=== PATIENT | female | born 1950 | race Caucasian/White ===

== ENCOUNTER 2020-03-31 12:36 | Emergency (ER) | payer OTHER, SELFPAY ==
[2020-03-31 12:56] VITALS: BP 159/72; PULSE 92; RESP 16; TEMP 36.3; O2SAT 99
--- NOTE | 2020-03-31 13:32 | ED.ABDPAIN ---
HPI - Abdominal Pain General Chief Complaint: Abdominal Pain Stated Complaint: abd pain Time Seen by Provider: 03/31/20 13:07 Source: patient and RN notes reviewed Mode of arrival: ambulatory Limitations: no limitations History of Present Illness HPI narrative: 69 year old female who presents to [facility] care with stated complaints of right upper abdominal discomfort which occurred at end of last week which was sharp and lasted only for a short interval. Yesterday patient states that she had pain in her upper right abdomen which radiated into the lower abdomen intermittently.States just soreness to area now, last bowel movement was today, no fevers, no nausea or vomiting voiced. Patient states no pain with urination or urgency.Patient denies any problems with acid reflux, gall bladder disease MD elicited complaint: abdominal pain Onset (ago): day(s) (last week for one day the started again yesterday and today) Pain Consistency: intermittent Location: RUQ and RLQ (radiated to right lower abdomen) Severity: mild Pain scale (0-10): 4 Quality: other (soreness) Radiation: RUQ and RLQ Exacerbating factors: nothing Relieving factors: nothing Related Data Hx Last Menstrual Period: hysterectomy Home Medications Medication Instructions Recorded Confirmed atorvastatin 10 mg tablet 10 mg PO DAILY 08/21/19 03/31/20 calcium citrate 200 mg (950 mg) 200 mg PO DAILY 08/21/19 03/31/20 tablet cyclosporine 0.05 % eye drops in a 1 drop EACH EYE Q12H 08/21/19 03/31/20 dropperette clvtegld-kplljxg-tmhg-lutein mcg PO 08/21/19 01/30/20 omega-3 fatty acids 1,000 mg 1,000 mg PO DAILY 08/21/19 03/31/20 capsule Allergies Allergy/AdvReac Type Severity Reaction Status Date / Time No Known Allergies Allergy Mild Verified 03/31/20 12:59 Review of Systems Review of Systems: Narrative: CONSTITUTIONAL: Denies fever, chills, or sweats. EYES: Denies visual changes, redness, or discharge. ENT: Denies rhinorrhea, congestion, sore throat, or otalgia. CARDIOVASCULAR: Denies chest pain, palpitations, or edema. RESPIRATORY: Denies cough or dyspnea. GASTROINTESTINAL: Denies abdominal pain, nausea, vomiting, or diarrhea. GENITOURINARY: Denies dysuria or hematuria states right upper abdomen to right lower abdomen pain. SKIN: Denies rash or itching. MUSCULOSKELETAL: Denies back pain, joint pain, or myalgia. NEUROLOGIC: Denies headache, numbness, or weakness. PSYCHIATRIC: Denies anxiety or depression. All systems reviewed & are unremarkable except as noted in HPI and below PMFSH Past Medical History Medical History (Updated 03/31/20 @ 17:53 by Robyn Ordoñez NP) Hyperlipidemia UTI (urinary tract infection) Surgical History Surgical History H/O cataract extraction H/O detached retina repair H/O: hysterectomy History of Mohs surgery for squamous cell carcinoma in situ of skin Family History Family History Father Family history of cardiovascular disease Hypertension Family history of elevated blood lipids Acute myocardial infarction Social History Social History (Updated 03/31/20 @ 17:53 by Robyn Ordoñez NP) Smoking status: Never smoker Alcohol intake: current Living arrangements: with family Gender identity (if verbalized by the patient): Female Comments At time of signature, agree with nursing past medical, surgical, social and family history. There is no relevant family history pertinent to the presenting complaint Exam Narrative: Exam Narrative: GENERAL: Well-appearing, well-nourished, and in no acute distress. HEAD: Normocephalic, atraumatic. EYES: PERRLA and EOMI. ENT: Nares clear, no rhinorrhea or epistaxis. Mucous membranes moist. NECK: Supple. CHEST: Clear to auscultation. No respiratory distress. HEART: Regular rate and rhythm. No murmur heard. Normal peripheral pulses. ABDOMEN: Soft, nontender to pa
== END 2020-03-31 13:49 | disposition home or self-care (01) ==
PROVIDERS: Emergency Provider Registered Nurse; PCP Family Medicine
DX: N39.0 Urinary tract infection, site not specified (principal)
CPT/HCPCS: 81003; 87086; 99213; G0463

== ENCOUNTER 2020-10-27 08:31 | Outpatient (CLI) | payer OTHER, SELFPAY | END 2020-10-27 08:32 | disposition home or self-care (01) | LOC: ANHCOVIDVC 08:31 | PROVIDERS: PCP Family Medicine | DX: Z23 Encounter for immunization (principal) | CPT/HCPCS: 0001A; 91300 ==

== ENCOUNTER 2020-11-17 08:00 | Outpatient (CLI) | payer OTHER, SELFPAY | END 2020-11-17 08:01 | disposition home or self-care (01) | LOC: ANHCOVIDVC 08:01 | PROVIDERS: PCP Family Medicine | DX: Z23 Encounter for immunization (principal) | CPT/HCPCS: 0002A; 91300 ==

== ENCOUNTER → 2021-10-13 09:35 | Outpatient (CLI) | payer OTHER, SELFPAY ==
--- NOTE | ~2021-10-13 | US_ITS ---
EXAMINATION: US thyroid EXAM DATE: 10/13/2021 09:57 INDICATION: Thyroid nodule. Partial thyroidectomy. TECHNIQUE: Multiple grayscale and Doppler images of the thyroid were obtained (by a technologist who performed the scan) and subsequently reviewed. Individual nodules and recommendations may be reporte d in accordance with TI-RADS system as designated by the 2017 ACR White Paper TI-RADS committee. The re is no prior study for comparison. FINDINGS: The right there are lobe measures 3.7 x 1.2 x 1.1 cm, the left measuring 4.7 x 2.4 x 2.9 cm. Diffusel y heterogeneous thyroid echogenicity. There is a left thyroid lobe category TR 4 nodule measuring 3.9 x 2.3 x 2.4 cm. This is large enough to recommend biopsy if not previously performed. IMPRESSION: Left thyroid lobe nodule; consider ultrasound-guided FNA if not previously performed. Reviewed, dictated and finalized at location G. ECT HIRE IMPRESSION: Left thyroid lobe nodule; consider ultrasound-guided FNA if not pre viously performed.
== END ==
PROVIDERS: PCP Family Medicine; Visit Provider Internal Medicine Endocrinology, Diabetes & Metabolism
DX: E04.1 Nontoxic single thyroid nodule (principal)
CPT/HCPCS: 76536

== ENCOUNTER 2021-11-17 09:05 | Outpatient (CLI) | payer OTHER, SELFPAY ==
--- NOTE | ~2021-11-17 | US_ITS ---
EXAMINATION: US FNA w image guidance DATE: 11/17/2021 10:20 INDICATION: Left thyroid mass TECHNIQUE: A time-out was performed to verify the patient's name, date of , and procedure to be performed . The procedure and its benefits and risks were discussed with the patient. Risks specifically discus sed included bleeding and infection. The patient understood the risks and agreed to proceed. The neck was prepped and draped in the usual sterile manner. 3 mL 1% lidocaine was used for local anesthesia . 6 passes were made with a 25G needle into the lesion. Appropriate needle location was documented with continuous sonographic guidance. The specimens were passed to the industrial technologist in the room. A sterile bandage was applied. There were no immediate complications. FINDINGS: Grayscale ultrasound images demonstrate biopsy needles advanced into a 4.0 cm heterogeneous predomina ntly solid left thyroid mass. IMPRESSION: 1. Successful ultrasound-guided fine needle aspiration of a 4.0 cm left thyroid mass. Reviewed, dictated and finalized at location A. IMPRESSION: 1. Successful ultrasound-guided fine needle aspiration of a 4.0 cm left thyroi d mass.
== END 2021-11-17 09:06 | disposition home or self-care (01) ==
LOC: ANHIMG 09:08
PROVIDERS: PCP Family Medicine; Visit Provider Internal Medicine Endocrinology, Diabetes & Metabolism
DX: E04.1 Nontoxic single thyroid nodule (principal)
CPT/HCPCS: 10005; 88173; 88305

== ENCOUNTER 2021-12-28 06:50 | Outpatient (CLI) | payer OTHER, SELFPAY ==
--- NOTE | ~2021-12-28 | NM_ITS ---
EXAMINATION: NM thyroid scan w uptake DATE: 12/29/2021 14:23 INDICATION: Thyroid nodule. COMPARISON: Ultrasound 10/13/2021 TECHNIQUE: 0.518 mCi I-123 was administered orally. Scintigraphic images of the thyroid gland were o btained at 24 hours. Thyroid uptake was calculated by the technologist. FINDINGS: The thyroid uptake is 20% (normal 10-30%), with the right lobe measuring 2% uptake and the left 18%. There is a hyperactive nodule in left thyroid lobe that measured 3.9 cm on the ultrasound from 022. IMPRESSION: 1. Hyperactive nodule in left thyroid lobe. Fine-needle aspiration on 11/17/2021 demonstrated patholo gy consistent with benign follicular nodule with Hurthle cells. Reviewed, dictated and finalized at location A. IMPRESSION: 1. Hyperactive nodule in left thyroid lobe. Fine-needle aspiration on 2 demonstrated pathology consistent with benign follicular nodule with Hurthle cells.
== END 2021-12-28 06:51 | disposition home or self-care (01) ==
LOC: ANHIMG 06:53
PROVIDERS: PCP Family Medicine; Visit Provider Internal Medicine Endocrinology, Diabetes & Metabolism
DX: E04.1 Nontoxic single thyroid nodule (principal)
CPT/HCPCS: 78014; A9516

== ENCOUNTER 2022-11-23 07:30 | Outpatient (CLI) | payer OTHER, SELFPAY ==
--- NOTE | ~2022-11-23 | US_ITS ---
EXAMINATION: US thyroid DATE: 11/23/2022 08:11 INDICATION: Toxic multinodular goiter. TECHNIQUE: Multiple ultrasound images of the thyroid were obtained. COMPARISON: Thyroid ultrasound 10/13/2021 FINDINGS: The right thyroid lobe measures 4.0 x 1.2 x 1.5 cm. The left thyroid lobe measures 4.8 x 2.2 x 3.1 c m. In the right thyroid lobe, there is a 6 mm solid, hypoechoic, wider than tall nodule with smooth margin without echogenic foci (TI-RADS TR4). In the thyroid isthmus, there is an 8 mm solid, hypoecho ic, wider than tall nodule with lobulated margin without echogenic foci (TR4). In the left lower lobe , there is a 4.2 cm predominantly solid, hypoechoic, wider than tall nodule with smooth margin withou t echogenic foci (TR4), stable from 11/17/2021 when biopsy was benign. IMPRESSION: 1. Multinodular goiter, likely not clinically significant. No follow-up is needed. Reviewed, dictated and finalized at location A. IMPRESSION: 1. Multinodular goiter, likely not clinically significant. No follow-up is need ed.
== END 2022-11-23 07:31 | disposition home or self-care (01) ==
PROVIDERS: PCP Family Medicine; Visit Provider Internal Medicine Endocrinology, Diabetes & Metabolism
DX: E05.20 Thyrotoxicosis with toxic multinodular goiter without thyrotoxic crisis or storm (principal); E04.2 Nontoxic multinodular goiter
CPT/HCPCS: 76536

== ENCOUNTER 2023-10-17 16:26 | Emergency (ER) | payer OTHER, SELFPAY ==
--- NOTE | ~2023-10-17 | XR_ITS ---
EXAMINATION: XR femur LT min 2V DATE: 10/17/2023 16:55 INDICATION: Posterior left thigh pain. Fall. TECHNIQUE: 2 views of left femur on 4 radiographs were obtained. COMPARISON: None. FINDINGS: Bone alignment is normal. No fracture. There is mild left hip osteoarthritis. No knee joint effusion. IMPRESSION: 1. Mild left hip osteoarthritis. Reviewed, dictated and finalized at location E. [employer]
[2023-10-17 16:34] VITALS: BP 139/76; PULSE 72; RESP 16; TEMP 36.8; O2SAT 99
--- NOTE | 2023-10-17 16:42 | ED.LOWEXIN ---
HPI - Extremity Injury (Lower) General Chief Complaint: Extremity Injury, Lower Stated Complaint: INJURED L LEG Time Seen by Provider: 10/17/23 16:42 Source: patient Mode of arrival: ambulatory Limitations: no limitations History of Present Illness HPI Narrative: 72-year-old female presents with complaint of pain to posterior left thigh. Reports that she fell approximately 5 days ago, slipped in snow. Has been taking ibuprofen and Tylenol but continues to have pain. Today states she pushed open and over and fell over on to left side, aggravated left thigh pain. Ambulatory with steady gait. Denies pain to left hip. Patient requesting x-ray. All systems reviewed and negative except as noted above. Related Data Home Medications Medication Instructions Recorded Confirmed omega-3 fatty acids 1,000 mg 1,000 mg PO DAILY 08/21/19 10/17/23 capsule (Fish Oil Concentrate) methimazole 5 mg tablet 5 mg PO DAILY 12/21/22 10/17/23 zinc 15 mg tablet 15 mg PO DAILY 12/21/22 10/17/23 melatonin 3 mg tablet 4 mg PO QHS PRN Insomnia 06/29/23 10/17/23 Allergies Allergy/AdvReac Type Severity Reaction Status Date / Time No Known Allergies Allergy Mild Verified 10/17/23 16:47 Review of Systems Review of Systems: CONSTITUTIONAL: Denies fever, chills, or sweats. EYES: Denies visual changes, redness, or discharge. ENT: Denies rhinorrhea, congestion, sore throat, or otalgia. CARDIOVASCULAR: Denies chest pain, palpitations, or edema. RESPIRATORY: Denies cough or dyspnea. GASTROINTESTINAL: Denies abdominal pain, nausea, vomiting, or diarrhea. GENITOURINARY: Denies dysuria or hematuria. SKIN: Denies rash or itching. MUSCULOSKELETAL: Reports pain and swelling to left thigh. NEUROLOGIC: Denies headache, numbness, or weakness. PSYCHIATRIC: Denies anxiety or depression. All other systems reviewed are negative, except as documented in HPI. [facility] Past Medical History Medical History Hyperlipidemia UTI (urinary tract infection) Surgical History Surgical History H/O cataract extraction H/O detached retina repair H/O: hysterectomy History of Mohs surgery for squamous cell carcinoma in situ of skin History of vulvectomy 03/15/22 Family History Family History Father Family history of cardiovascular disease Hypertension Family history of elevated blood lipids Acute myocardial infarction Social History Social History Smoking status: Never smoker Alcohol intake: current Alcohol use details: 2 drinks per month Lack of Transportation: No Lack of Food: Never True Current Housing: I Have Housing Concerned About Future Housing: No Difficulty Paying Gas/Electric Bills: No Difficulty Paying for Meds: No Currently Unemployed: No Education: Master's Degree or Higher Difficulty w/ Childcare or Family Care: No Living arrangements: with family Gender identity (if verbalized by the patient): Female Comments At time of signature, agree with nursing past medical, surgical, social and family history. There is no relevant family history pertinent to the presenting complaint. Exam Narrative: GENERAL: This is a well-nourished, well-developed patient, in no apparent distress. HEAD: normocephalic, atraumatic. EYES: PERRL. Sclera clear/white. Vision is grossly intact. EARS: External ears normal NOSE: External nose normal NECK: Neck supple, non-tender without lymphadenopathy, masses or thyromegaly. CARDIOVASCULAR: Regular rate and rhythm without murmurs, gallops, or rubs. RESPIRATORY: Clear to auscultation. Breath sounds equal bilaterally. No wheezes, rales, or rhonchi. SKIN: warm, Dry, intact with no suspicious lesions or rash, good texture and turgor. NEURO: awake, alert, and oriented to person, mihir
== END 2023-10-17 17:09 | disposition home or self-care (01) ==
PROVIDERS: Emergency Provider Nurse Practitioner Family; PCP Family Medicine
DX: S76.312A Strain of muscle, fascia and tendon of the posterior muscle group at thigh level, left thigh, initial encounter (principal); W00.0XXA Fall on same level due to ice and snow, initial encounter; E78.5 Hyperlipidemia, unspecified; Z85.828 Personal history of other malignant neoplasm of skin
CPT/HCPCS: 73552; 99213; G0463

== ENCOUNTER 2024-06-02 02:24 | Day surgery (SDC) | payer OTHER, SELFPAY ==
[2024-05-22 10:20] VITALS: BMI 37.8
[2024-06-02 07:20] VITALS: BP 148/83; PULSE 94; RESP 18; TEMP 36.9; O2SAT 98; BMI 37.2
[2024-06-02] MEDS: LACTATED RINGERS 1,000 ML 150 ML IV CONT (07:43)
--- NOTE | 2024-06-02 07:44 | WPDANESEPPF ---
Anes - Initial Pre Proc Eval Procedure: Operation Date: 06/02/24 08:30 Proposed Procedures p Screening Colonoscopy - Sukhwinder Whitten MD Date/Time: 06/02/24 07:44 Surgeon: Sukhwinder Whitten MD Pre Op Diagnosis: screening neoplasm of colon Patient Data Age: 73 Gender: F Height: 1.63 m Weight: 98.3 kg Last Vital Signs Temp 36.9 C 06/02/24 07:20 Pulse 94 06/02/24 07:20 Resp 18 06/02/24 07:20 BP 148/83 H 06/02/24 07:20 Pulse Ox 98 06/02/24 07:20 O2 Del Method Room Air 06/02/24 07:20 Allergies Allergy/AdvReac Type Severity Reaction Status Date / Time No Known Allergies Allergy Mild Verified 06/02/24 07:30 Home Medications Medication Instructions Recorded Confirmed Type omega-3 fatty acids 1,000 mg 1,000 mg PO DAILY 08/21/19 06/02/24 History capsule (Fish Oil Concentrate) Lactobacillus rhamnosus GG 20 See Rx Instructions PO .COMPLEX 12/02/20 06/02/24 Rx billion cell capsule (Probiotic #30 caps [facility]) lmzdpxaf-xbx-lorwl acid 0.4 1 tablet PO DAILY #90 tabs 12/02/20 06/02/24 Rx mg-lycopene 300 mcg-lutein 250 mcg tablet (Centrum Silver) zinc 15 mg tablet 15 mg PO DAILY 12/21/22 06/02/24 History melatonin 3 mg tablet 4 mg PO QHS PRN Insomnia 06/29/23 06/02/24 History atorvastatin 20 mg tablet 20 mg PO QHS #90 tabs 10/08/23 06/02/24 Rx aspirin 81 mg capsule 81 mg PO DAILY 12/28/23 06/02/24 History cholecalciferol (vitamin D3) 25 25 mcg PO DAILY 12/28/23 06/02/24 History mcg (1,000 unit) capsule ginkgo biloba 40 mg tablet 40 mg PO DAILY 12/28/23 06/02/24 History naproxen 500 mg tablet 500 mg PO BID PRN pain #180 tabs 12/28/23 06/02/24 Rx propranolol 20 mg tablet 20 mg PO Q12H PRN Anxiety 12/28/23 06/02/24 History calcium acetate 667 mg tablet 667 mg PO ONCE 05/30/24 06/02/24 History Patient hx anesthesia problems: none Family hx anesthesia problems: none Results Review: All pre-operative results and documents have been reviewed as part of the pre-operative evaluation. [facility] Past Medical History Medical History Ganglion cyst Hyperlipidemia UTI (urinary tract infection) Surgical History Surgical History H/O cataract extraction H/O detached retina repair H/O: hysterectomy History of Mohs surgery for squamous cell carcinoma in situ of skin History of vulvectomy 03/15/22 Family History Family History Father Family history of cardiovascular disease Hypertension Family history of elevated blood lipids Acute myocardial infarction Social History Social History Smoking status: Never smoker Alcohol intake: current Alcohol use details: 2 drinks per month Lack of Transportation: No Lack of Food: Never True Current Housing: I Have Housing Concerned About Future Housing: No Difficulty Paying Gas/Electric Bills: No Difficulty Paying for Meds: No Currently Unemployed: No Education: Master's Degree or Higher Difficulty w/ Childcare or Family Care: No Living arrangements: with family Gender identity (if verbalized by the patient): Female Spiritual care concerns: No Anes - Eval Final PreProcedure Day of Procedure 06/02/24 07:44 Patient weight: obese Heart: regular rate and rhythm Lungs: clear to auscultation Airway: Mallampati scale class II Neurological: alert and oriented Last oral intake: >/= 8 hours ASA classification: III Emergent: no Anesthetic plan: proceed Anesthesia type and monitoring: general GIVS and standard monitoring Results Review: All pre-operative results and documents have been reviewed as part of the pre-operative evaluation. Informed Consent: The patient's anesthetic plan and its attendant risks and benefits were discussed with the patient/family/POA. Questions were solicited
--- NOTE | 2024-06-02 08:31 | PM.IMHP ---
H&P: HPI History of Present Illness Date/Time: 06/02/24 08:31 Chief Complaint: This patient had vulvar cancer 2 years ago. She underwent radical surgery and radiation therapy. She has never had a colonoscopy before. The reason for her visit today is because a PET scan showe activity in the colorectal area. She denies gastrointestinal symptoms except for mild incontinence after radiation was completed. Review of Systems Review of Systems: All systems reviewed & are unremarkable except as noted in HPI and below PMFSH Past Medical History Medical History Ganglion cyst Hyperlipidemia UTI (urinary tract infection) Surgical History Surgical History H/O cataract extraction H/O detached retina repair H/O: hysterectomy History of Mohs surgery for squamous cell carcinoma in situ of skin History of vulvectomy 03/15/22 Family History Family History Father Family history of cardiovascular disease Hypertension Family history of elevated blood lipids Acute myocardial infarction Social History Social History Smoking status: Never smoker Alcohol intake: current Alcohol use details: 2 drinks per month Lack of Transportation: No Lack of Food: Never True Current Housing: I Have Housing Concerned About Future Housing: No Difficulty Paying Gas/Electric Bills: No Difficulty Paying for Meds: No Currently Unemployed: No Education: Master's Degree or Higher Difficulty w/ Childcare or Family Care: No Living arrangements: with family Gender identity (if verbalized by the patient): Female Spiritual care concerns: No Meds Home Medications and Allergies Home Medications Medication Instructions Recorded Confirmed Type omega-3 fatty acids 1,000 mg 1,000 mg PO DAILY 08/21/19 06/02/24 History capsule (Fish Oil Concentrate) Lactobacillus rhamnosus GG 20 See Rx Instructions PO .COMPLEX 12/02/20 06/02/24 Rx billion cell capsule (Probiotic #30 caps [facility]) kqymyceh-lbj-wqkhg acid 0.4 1 tablet PO DAILY #90 tabs 12/02/20 06/02/24 Rx mg-lycopene 300 mcg-lutein 250 mcg tablet (Centrum Silver) zinc 15 mg tablet 15 mg PO DAILY 12/21/22 06/02/24 History melatonin 3 mg tablet 4 mg PO QHS PRN Insomnia 06/29/23 06/02/24 History atorvastatin 20 mg tablet 20 mg PO QHS #90 tabs 10/08/23 06/02/24 Rx aspirin 81 mg capsule 81 mg PO DAILY 12/28/23 06/02/24 History cholecalciferol (vitamin D3) 25 25 mcg PO DAILY 12/28/23 06/02/24 History mcg (1,000 unit) capsule ginkgo biloba 40 mg tablet 40 mg PO DAILY 12/28/23 06/02/24 History naproxen 500 mg tablet 500 mg PO BID PRN pain #180 tabs 12/28/23 06/02/24 Rx propranolol 20 mg tablet 20 mg PO Q12H PRN Anxiety 12/28/23 06/02/24 History calcium acetate 667 mg tablet 667 mg PO ONCE 05/30/24 06/02/24 History Allergies Allergy/AdvReac Type Severity Reaction Status Date / Time No Known Allergies Allergy Mild Verified 06/02/24 07:30 Vital Signs Vital Signs - 24 hr 06/02/24 07:20 Temperature 98.5 F Pulse Rate 94 Respiratory Rate 18 Blood Pressure 148/83 H Pulse Oximetry 98 Oxygen Delivery Room Air Assessment and Plan Assessment and plan (1) Screening for colon cancer: Code(s): Z12.11 - Encounter for screening for malignant neoplasm of colon Status: Acute Plan The patient is deemed a good candidate for colonoscopy. Will proceed.
[2024-06-02 08:52] VITALS: BP 95/49; PULSE 85; RESP 18; O2SAT 96
[2024-06-02 09:02] VITALS: BP 104/51; PULSE 82; RESP 24; O2SAT 96
[2024-06-02 09:12] VITALS: BP 144/69; PULSE 81; RESP 22; O2SAT 100
== END 2024-06-02 09:27 | disposition home or self-care (01) ==
PROVIDERS: PCP Family Medicine; Referring Provider Nurse Practitioner; Visit Provider Internal Medicine Gastroenterology
PROC: 0DJD8ZZ Inspection of Lower Intestinal Tract, Via Natural or Artificial Opening Endoscopic (ICD-10-PCS; CPT 45378; principal; 2024-06-02 08:30)
DX: Z12.11 Encounter for screening for malignant neoplasm of colon (principal); K57.30 Diverticulosis of large intestine without perforation or abscess without bleeding; E78.5 Hyperlipidemia, unspecified; E66.9 Obesity, unspecified; Z68.37 Body mass index [BMI] 37.0-37.9, adult; Z79.82 Long term (current) use of aspirin; Z79.1 Long term (current) use of non-steroidal anti-inflammatories (NSAID); Z98.890 Other specified postprocedural states; Z92.3 Personal history of irradiation; Z85.44 Personal history of malignant neoplasm of other female genital organs; Z82.49 Family history of ischemic heart disease and other diseases of the circulatory system
CPT/HCPCS: 45378; J2003; J2704; J7120

== ENCOUNTER 2025-05-27 16:09 | Emergency (ER) | payer MEDICARE, SELFPAY ==
--- NOTE | 2025-05-27 16:20 | ED.GENADULT ---
HPI - General Adult General Chief complaint: Extremity Injury, Lower Stated complaint: L knee pain Source: patient Mode of arrival: ambulatory Limitations: no limitations History of Present Illness HPI narrative: Pt is a 74 y/o female presenting with c/o L. knee pain, atraumatic. Pain began yesterday. Aggravating factors include weightbearing, palpation. Denies hx of similar pain. No recent travel/immobilization/surgery/active cancer/personal or family hx of blood clotting disorder. Tx initiated CEMENT MIXER includes ibuprofen and ice with improvement. Voices concern for blood clot. No CP,SOB, or any other complaints. Related Data Home Medications ?Medication ?Instructions ?Recorded ?Confirmed ?Last Taken ?Type omega-3 fatty acids 1,000 mg 1,000 mg PO DAILY 08/21/19 12/16/24 05/31/24 History capsule (Fish Oil Concentrate) zinc 15 mg tablet 15 mg PO DAILY 12/21/22 12/16/24 05/31/24 History melatonin 3 mg tablet 4 mg PO QHS PRN Insomnia 06/29/23 12/16/24 05/31/24 History aspirin 81 mg capsule 81 mg PO DAILY 12/28/23 12/16/24 05/31/24 History ginkgo biloba 40 mg tablet 40 mg PO DAILY 12/28/23 12/16/24 05/31/24 History calcium acetate 667 mg tablet 667 mg PO ONCE 05/30/24 12/16/24 05/31/24 History cholecalciferol (vitamin D3) 25 50 mcg PO DAILY 12/16/24 12/16/24 Unknown History mcg (1,000 unit) capsule Allergies Allergy/AdvReac Type Severity Reaction Status Date / Time No Known Allergies Allergy Mild Verified 05/27/25 16:23 Review of Systems Review of Systems: CONSTITUTIONAL: Denies body aches, fever, chills, or sweats. EYES: Denies visual changes, redness, or discharge. ENT: Denies rhinorrhea, congestion, sore throat, or otalgia. CARDIOVASCULAR: Denies chest pain, palpitations, or edema. RESPIRATORY: Denies cough or dyspnea. GASTROINTESTINAL: Denies abdominal pain, nausea, vomiting, or diarrhea. GENITOURINARY: Denies dysuria or hematuria. SKIN: Denies rash, itching, or wounds. MUSCULOSKELETAL:reports pain to left leg. Denies back pain NEUROLOGIC: Denies headache, numbness, tingling, or weakness. PSYCH: Denies depression or anxiety. All systems reviewed & are unremarkable except as noted in HPI and below PMFSH Past Medical History Medical History Ganglion cyst UTI (urinary tract infection) Hyperlipidemia Surgical History Surgical History History of vulvectomy 03/15/22 History of Mohs surgery for squamous cell carcinoma in situ of skin H/O cataract extraction H/O: hysterectomy H/O detached retina repair Family History Family History Father Family history of cardiovascular disease Hypertension Family history of elevated blood lipids Acute myocardial infarction Social History Social History Smoking status: Never smoker Alcohol intake: current Alcohol use details: 2 drinks per month Lack of Transportation: No Lack of Food: Never True Current Housing: I Have Housing Concerned About Future Housing: No Difficulty Paying Gas/Electric Bills: No Difficulty Paying for Meds: No Currently Unemployed: No Education: Master's Degree or Higher Difficulty w/ Childcare or Family Care: No Living arrangements: with family Gender identity (if verbalized by the patient): Female Spiritual care concerns: No Exam Narrative: GENERAL: Well-appearing, well-nourished, obese, and in no acute distress. HEAD: Normocephalic, atraumatic. EYES: EOMI. No redness or drainage. Conjunctivae normal. ENT: Mucous membranes pink and moist. NECK: Normal AROM. Supple. CHEST: No respiratory distress. HEART: Regular rate Normal peripheral pulses. MUSCULOSKELETAL: No bony tenderness. EXTREMITIES: Normal range of motion. Pain with palpation along the posterior aspect of the left leg, beginning immediately superior to the L. popliteal space and extending down to mid-calf. No erythema, ecchymosis, open wounds, increased warmth. +2 edema to the LLE. No obvious popliteal mass. +FROM +DNVI to the LLE SKIN: Warm, dry, no rash. Capillary refill normal. Normal skin turgor. NEURO: No focal deficits. Alert and oriented x3. Gait steady. PSYCH: Normal affect. No signs of depression or anxiety. Course Course Level of Care: Express Care Visit Vital Signs Vital signs: Vital Signs Temperature 98 F 05/27/25 16:23 Pulse Rate 85 05/27/25 16:23 Respiratory Rate 16 05/27/25 16:23 Blood Pressure 144/69 H 05/27/25 16:23 Pulse Oximetry 98 05/27/25 16:23 Temperature 98 F 05/27/25 16:23 Pulse Rate 85 05/27/25 16:23 Respiratory Rate 16 05/27/25 16:23 Blood Pressure 144/69 H 05/27/25 16:23 Pulse Oximetry 98 05/27/25 16:23 Medical Decision Making MDM Narrative Medical decision making narrative: Unable to accurately calculate wells score due to chronic edema of the LLE 2/2 lymphedema. Given limitations in the [facility] setting, I recommended she be transferred to ER for further diagnostic work up. Pt declined, stating she would rather call her doctor in the morning. Strict GO TO ER precautions discussed at length Discussed elevated blood pressure readings with patient and advised daily BP monitoring and f/u with PCP if persisting. Vital Signs Vital Signs: Vital Signs Temperature 98 F 05/27/25 16:23 Pulse Rate 85 05/27/25 16:23 Respiratory Rate 16 05/27/25 16:23 Blood Pressure 144/69 H 05/27/25 16:23 Pulse Oximetry 98 05/27/25 16:23 Temperature 98 F 05/27/25 16:23 Pulse Rate 85 05/27/25 16:23 Respiratory Rate 16 05/27/25 16:23 Blood Pressure 144/69 H 05/27/25 16:23 Pulse Oximetry 98 05/27/25 16:23 Discharge Plan Discharge Clinical Impression: Pain in left leg, Lymphedema of left leg, Elevated blood pressure reading in office without diagnosis of hypertension Patient Disposition: Home Condition: Stable Instructions: Leg Pain (ED) Additional Instructions: Call your doctor first thing in the morning to inquire about a blood test (d-dimer). Should they not respond within a timely manner or should your symptoms become worse/ any new symptoms develop, go straight to ER Patient Language: Citizen Of [place] Prescriptions: No Action omega-3 fatty acids [Fish Oil Concentrate] 1,000 mg capsule 1,000 mg PO DAILY melatonin 3 mg tablet 4 mg PO QHS PRN (Reason: Insomnia) Probiotic Digestive Care 20 billion cell capsule See Rx Instructions PO .COMPLEX Qty: 30 11RF Rx Instructions: 1 capsule QD PO; Centrum Silver 0.4-300-250 mg-mcg-mcg tablet 1 tablet PO DAILY Qty: 90 3RF zinc 15 mg tablet 15 mg PO DAILY ginkgo biloba 40 mg tablet 40 mg PO DAILY Rx Instructions: give with meal/snack aspirin 81 mg capsule 81 mg PO DAILY naproxen 500 mg tablet 500 mg PO BID PRN (Reason: pain) Qty: 180 0RF cholecalciferol (vitamin D3) 25 mcg (1,000 unit) capsule 50 mcg PO DAILY calcium acetate 667 mg tablet 667 mg PO ONCE propranolol 20 mg tablet 20 mg PO Q12H PRN (Reason: Anxiety) Qty: 180 1RF atorvastatin 20 mg tablet See Rx Instructions .ROUTE .COMPLEX Qty: 90 1RF Dose Instruction: TAKE 1 TABLET AT BEDTIME Rx Instructions: TAKE 1 TABLET AT BEDTIME Follow-up/Referrals: Karyna Benton DO [Primary Care Provider, Family Practice] - 05/28/25 Time of Disposition: 17:08
[2025-05-27 16:23] VITALS: BP 144/69; PULSE 85; RESP 16; TEMP 36.6; O2SAT 98
== END 2025-05-27 17:14 | disposition home or self-care (01) ==
PROVIDERS: Emergency Provider Registered Nurse; PCP Family Medicine
DX: M79.662 Pain in left lower leg (principal); I89.0 Lymphedema, not elsewhere classified; R03.0 Elevated blood-pressure reading, without diagnosis of hypertension; E78.5 Hyperlipidemia, unspecified; Z86.007 Personal history of in-situ neoplasm of skin
CPT/HCPCS: 99212; G0463

== ENCOUNTER 2025-05-28 11:21 | Emergency (ER) | payer MEDICARE, SELFPAY ==
--- NOTE | ~2025-05-28 | XR_ITS ---
EXAMINATION: XR knee LT 3V, 05/28/2025 12:14 CDT HISTORY: LT POSTERIOR KNEE PAIN COMPARISON: No comparisons available. Findings: No acute fracture or malalignment. No significant degenerative changes. Soft tissues unremarkable. Impression: No acute fracture or malalignment. Reviewed, dictated and finalized at location P. Impression: No acute fracture or malalignment.
--- NOTE | ~2025-05-28 | US_ITS ---
LEFT LOWER EXTREMITY VENOUS DUPLEX Clinical History: Left leg pain/swelling. hx of lymphedema COMPARISON: None TECHNIQUE: Grayscale, color, duplex/spectral Doppler sonography left leg FINDINGS: Left leg common femoral, femoral, popliteal, and calf veins compressible and color Doppler patent. Normal augmentation with distal compression. No internal echoes. IMPRESSION: 1. No left leg DVT. Reviewed, dictated and finalized at location R. IMPRESSION: 1. No left leg DVT.
[2025-05-28 11:30] VITALS: BP 180/69; PULSE 80; RESP 20; TEMP 36.7; O2SAT 99
--- OUTSIDE RECORDS SUMMARY | 2025-05-28 11:46 | XMS_ITS | Encounter Summary ---
Author Organization [facility] Address [address] [place] [address] Care Team Providers Care Button Pusher Name Role Phone Karyna Benton DO Primary Care Provider [phone]- [phone] Encounter Details Date Type Department Care Team (Late st Contact Info) Description 02/26/2003 Outpatient Historical HIS [facility] Felix Mata MD [address] [place] [address] BREAST REPLACEMT BY OTHER MEANS (Primary Dx) Social History Tobacco Use Types Packs/Day Years Used Date Smoking Tobacco: Never Assessed Comments Unknown Sex and Gender Information Value Date Recorded Sex Assigned at Not on file Legal Sex Female 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
--- OUTSIDE RECORDS SUMMARY | 2025-05-28 11:46 | XMS_ITS | Encounter Summary ---
Author Organization [facility] Address [address] [place] [address] Care Team Providers Care Outside Sales Consultant Name Role Phone Karyna Benton DO Primary Care Provider [phone]- [phone] Encounter Details Date Type Department Care Team (Late st Contact Info) Description 12/24/1998 Outpatient Historical HIS [facility] Felix Mata MD [address] [place] [address] Breast replaced by other means (Primary Dx) Social History Tobacco Use Types Packs/Day Years Used Date Smoking Tobacco: Never Assessed Comments Unknown Sex and Gender Information Value Date Recorded Sex Assigned at Not on file 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
--- OUTSIDE RECORDS SUMMARY | 2025-05-28 11:46 | XMS_ITS | Encounter Summary ---
Author Organization [facility] Address 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
--- OUTSIDE RECORDS SUMMARY | 2025-05-28 11:46 | XMS_ITS | Encounter Summary ---
Author Organization [facility] Address 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 DRILL OPERATOR Gender Identity Not on file Sexual Orientation Not on file documented as of this encounter Plan of Treatment Not on file documented as of this encounter Procedures Procedure Name Priority Date/Time Associated Diagnosis Comments MAMMO SCREEN BILAT W OR WO CAD Routine 11/29/2007 4:36 PM CDT documented in this encounter Results * MAMMO DIGITAL SCREEN BILAT (11/29/2007 4:36 PM CDT) Anatomical Region Laterality Modality Breast Bilateral Other 11/29/2007 4:36 PM CDT Narrative 12/03/2007 7:24 AM CDT [address] [address] Admit Date: 11/29/2007 ANGELA ISBELL Sex: F Admit Prov: NUBIA GREEN Date: 1950 Primary Care Prov: BERTIN PLUMMER CMRN: [id number] Room: [facility] N: [id number] IMAGING SERVICES Ordering Prov: NUBIA GREEN Accession Number: [id number] Interpretation BILATERAL SCREENING DIGITAL MAMMOGRAMS WITH COMPUTER ASSISTED DIAGNOSIS 11/29/07 Comparison is made to 04/15/04. The films were reviewed using the CAD system. The breast parenchyma is fatty replaced. No new dominant masses, suspicious calcifications or areas of parenchymal asymmetry or distortion are identified. Impression: Stable screening mammogram Recommend routine followup Assessment BIRADS: 1-Negative Recommendation: Normal interval follow-up Dictated by: TWILA ONEIL Electronically signed by: TWILA ONEIL 12/03/2007 07:24 Transcribed: 12/02/2007 09:45 AMK Procedure Note Twila Oneil - 12/18/[address] [address] Admit Date: 11/29/2007 ANGELA ISBELL Sex: F Admit Prov: NUBIA GREEN Date: 1950 Primary Care Prov: BERTIN PLUMMER CMRN: [id number] [facility] [id number] IM[facility]ING SERVICES Ordering Prov: NUBIA GREEN Interpretation BILATERAL SCREENING DIGITAL MAMMOGRAMS WITH COMPUTER ASSISTEDDIAGNOSIS 11/29/07 Comparison is made to 04/15/04. The films were reviewed using theCAD system. The breast parenchyma is fatty replaced. No new dominantmasses, suspicious calcifications or areas of parenchymal asymmetry ordistortion are identified. Impression: Stable screening mammogram Recommend routine followup Assessment BIRADS: 1-Negative Recommendation: Normal interval follow-up Dictated by: TWILA ONEIL Electronically signed by: TWILA ONEIL 12/03/2007 07:24 Transcribed: 12/02/2007 09:45 AMK Nubia Green MD MAMMO ORDERABLES Final Result documented in this encounter Visit Diagnoses Diagnosis Other screening mammogram documented in this encounter Care Teams Rn Hemodialysis Charge Relationship Specialty Start Date End Date Karyna Benton DO [address] [place] [address] PCP - General Family Practice 03/10/21 documented as of this encounter
--- OUTSIDE RECORDS SUMMARY | 2025-05-28 11:46 | XMS_ITS | Encounter Summary ---
Author Organization [facility] Address [address] [place] [address] Care Team Providers Care Supervisor Pipe Manufacture Name Role Phone Karyna Benton DO Primary Care Provider [phone]- [phone] Encounter Details Date Type Department Care Team (Late st Contact Info) Description 02/21/2002 Outpatient Historical HIS [facility] Felix Mata MD [address] [place] [address] BREAST REPLACEMT BY OTHER MEANS (Primary Dx) Social History Tobacco Use Types Packs/Day Years Used Date Smoking Tobacco: Never Assessed Comments Unknown Sex and Gender Information Value Date Recorded Sex Assigned at Not on file Legal 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
--- OUTSIDE RECORDS SUMMARY | 2025-05-28 11:46 | XMS_ITS | Encounter Summary ---
Author Organization [facility] Address [address] [place] [address] Care Team Providers Care Senior Application Software Engineer Name Role Phone Karyna Benton DO Primary Care Provider [phone]- [phone] Encounter Details Date Type Department Care Team (Late st Contact Info) Description 06/09/2005 Outpatient Historical HIS [facility] Felix Mata MD [address] [place] [address] SURGERY FOLLOWUP NEC (Primary Dx) Social History Tobacco Use Types Packs/Day Years Used Date Smoking Tobacco: Never Assessed Comments Unknown Sex and Gender Information Value Date Recorded Sex Assigned at Not on file Legal Sex Female 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
--- OUTSIDE RECORDS SUMMARY | 2025-05-28 11:46 | XMS_ITS | Encounter Summary ---
Author Organization [facility] Address [address] [place] [address] Care Team Providers Care Academic Affairs Dean Name Role Phone Felix Fierro MD Primary Care Provider [phone] Encounter Details Date Type Department Care Team (Late st Contact Info) Description 05/07/2024 Lab Requisition [facility] [place] [facility] - DermPath Lab [address] [facility] [place] [address] Janiya Spencer DO [address] [facility] [address] [place] [address] Social History Tobacco Use Types Packs/Day Years Used Date Smoking Tobacco: Never Smokeless Tobacco: Never Alcohol Use Standard Drinks/Week Comments Yes 0 (1 standard drink = 0.6 oz pur e alcohol) occ Comments Unknown Sex and Gender Information Value Date Recorded Sex Assigned at Not on file Legal Sex Female 5:17 PM SENIOR PRODUCT ENGINEER Gender Identity Not on file Sexual Orientation Not on file documented as of this encounter Plan of Treatment Not on file documented as of this encounter Procedures Procedure Name Priority Date/Time Associated Diagnosis Comments DERMATOPATHOLOGY Routine 05/07/2024 12:1 5 PM CDT documented in this encounter Results * DERMATOPATHOLOGY (05/07/2024 12:15 PM CDT) Case Report Dermatopathology Report Case: [id number] Authorizing Provider: Janiya Spencer DO Collected: 05/07/2024 12:15 PM Ordering Location: [facility] [place] [facility] - Received: 05/08/2024 07:03 AM DermPath Lab Pathologist: Lizbeth Peña MD Specimens: A) - Skin, left upper back B) - Skin, left anterior lower extremity 1:42 PM CDT DERMATOPATHOLOGY LABORATORY Final Diagnosis Specimen A. SKIN, left upper back: LENTIGINOUS MELANOCYTIC NEVUS, JUNCTIONAL TYPE, IRRITATED (D22.5) ADJACENT SEBORRHEIC KERATOSIS, MACULAR (L82.1) Specimen B. SKIN, left anterior lower extremity: BENIGN VERRUCOUS KERATOSIS (L82.1) 1:42 PM CDT DERMATOPATHOLOGY LABORATORY at 1341 CDT Clinical History A: Lentigo r/o atypia B: R/O NMSC 1:42 PM CDT DERMATOPATHOLOGY LABORATORY Gross Description Specimen A: Received is one formalin filled container labeled with the patient's name and designated left upper back. The specimen consists of a shave biopsy measuring 6x5x1 mm. Jar 0. Specimen B: Received is one formalin filled container labeled with the patient's name and designated left anterior lower extremity. The specimen consists of a shave biopsy measuring 9x7x1 mm. Jar 0. 1:42 PM T DERMATOPATHOLOGY LABORATORY Microscopic Description Specimen A. SKIN, left upper back: This is a junctional nevus. There is melanin pigment in the stratum corneum. There is a lentiginous proliferation of melanocytes between nests of cells along the dermal-epidermal junction. There is underlying fibroplasia of the papillary dermis. Adjacent to this, there is a relatively broad, flat proliferation of small keratinocytes with increased basilar pigmentation. Specimen B. SKIN, left anterior lower extremity: Sections show hyperkeratosis, papillomatosis, hypergranulosis, and acanthosis. These histological findings can be seen in a verruca vulgaris or a seborrheic keratosis. 1:42 PM CDT DERMATOPATHOLOGY LABORATORY Disclaimer An external and internal positive and negative controls are appropriate for the histochemical, immunohistochemical and immunofluorescence stain(s) in this case (if any), except where stated explicitly. The performance characteristics of the stain(s) cited in this report were developed and its performance characteristic determined by the Dermatopathology Laboratory at [facility], directed by Dr. M. Julia Chacko. These tests need not be, and therefore are not, approved by the [place] Food and Drug Administration. The tests are used for clinical purposes. Billing Codes Specimen Charges Stain Charges 22111 75287 1 1 4 1:42 PM CDT DERMATOPATHOLOGY LABORATORY Embedded Images 4 1:42 PM CDT DERMATOPATHOLOGY LABORATORY Pathology/Cytology TISSUE SPECIMEN FROM SKIN / Unknown 05/07/2024 12:15 PM CDT 05/08/2024 7:03 AM CDT Miscellaneous samples (specimen) TISSUE SPECIMEN FROM SKIN / Unknown 05/07/2024 12:15 PM CDT 05/08/2024 7:03 AM CDT us Janiya Spencer DO LAB - PATHOLOGY/CYTOLOGY ORDERABLES Final Result DERMATOPATHOLOGY LABORATORY [facility] - Department of Dermatology [facility] [address] [place] [address], [address] [phone] documented in this encounter Visit Diagnoses Not on filedocumented in this encounter Care Teams Academic Affairs Dean Relationship Specialty Start Date End Date Felix Fierro MD [address] [place] [address] PCP - General 09/11/08 documented as of this encounter
--- OUTSIDE RECORDS SUMMARY | 2025-05-28 11:46 | XMS_ITS | Encounter Summary ---
Author Organization [facility] Address [address] [place] [address] Care Team Providers Care Cook Night Name Role Phone Felix Fierro MD Primary Care Provider [phone] Encounter Details Date Type Department Care Team (Late st Contact Info) Description 09/23/2018 Telephone [facility] Plastic Surgery [address] [place], [place] [id number] Jewel Wong MD [facility] [place] [id number] Social History Tobacco Use Types Packs/Day Years Used Date Smoking Tobacco: Never Smokeless Tobacco: Never Alcohol Use Standard Drinks/Week Comments Yes 0 (1 standard drink = 0.6 oz pur e alcohol) Comments Unknown Sex and Gender Information Value Date Recorded Sex Assigned at Not on file Legal Sex Female 5:17 PM CORNETIST Gender Identity Not on file Sexual Orientation Not on file documented as of this encounter Miscellaneous Notes * Telephone Encounter - Areli Horowitz - 09/23/2018 1:22 PM CST Per Mariella @ [facility] [employer] for cpt codes 18392, 58399, 09723, 57343, call reference # [id number]. ETIST documented in this encounter Plan of Treatment Not on file documented as of this encounter Visit Diagnoses Not on filedocumented in this encounter Care Teams Cook Night Relationship Specialty Start Date End Date Felix Fierro MD [address] [place] [id number] PCP - General 09/11/08 documented as of this encounter
--- OUTSIDE RECORDS SUMMARY | 2025-05-28 11:46 | XMS_ITS | Encounter Summary ---
Author Organization [facility] Address [address] [place] [address] Care Team Providers Care Car Dealer Name Role Phone Karyna Benton DO Primary Care Provider +1- [phone] Encounter Details Date Type Department Care Team (Late st Contact Info) Description 12/02/1999 Outpatient Historical [facility] Felix Mata MD [address] [place] [address] Breast replaced by other means (Primary Dx) Social History Tobacco Use Types Packs/Day Years Used Date Smoking Tobacco: Never Assessed Comments Unknown Sex and Gender Information Value Date Recorded Sex Assigned at Not on file Legal Sex Female 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
--- OUTSIDE RECORDS SUMMARY | 2025-05-28 11:46 | XMS_ITS | Encounter Summary ---
Author Organization [facility] Address 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 CLUTCH SPECIALIST Gender Identity Not on file Sexual Orientation Not on file documented as of this encounter Plan of Treatment Not on file documented as of this encounter Procedures Procedure Name Priority Date/Time Associated Diagnosis Comments MAMMO SCREEN BILAT W OR WO CAD Routine 03/05/2009 4:29 PM CDT documented in this encounter Results * MAMMO DIGITAL SCREEN BILAT (03/05/2009 4:29 PM CDT) Anatomical Region Laterality Modality Breast Bilateral Other 03/05/2009 4:29 PM CDT Narrative 03/09/2009 9:06 AM CDT [address] [address] Admit Date: 03/05/2009 ANGELA ISBELL Sex: F Admit Prov: NUBIA GREEN Date: 1950 Primary Care Prov: BERTIN PLUMMER CMRN: [id number] Room: VINODOralia N: [id number] IMAGING SERVICES Ordering Prov: NUBIA GREEN Accession Number: [id number] Interpretation BILATERAL SCREENING FULL FIELD DIGITAL MAMMOGRAM WITH CAD. 03/05/09 History: Bilateral breast augmentation. Routine screening Technique: Full and implant displaced mediolateral oblique and craniocaudal views were obtained using full field digital mammography. Comparison: 11/2007, 08/2006, 03/2004 Breast Composition: Scattered fibroglandular densities. Findings: No new dominant masses, suspicious calcifications, parenchymal asymmetry or areas of architectural distortion are identified in the visualized portion of either breast. Bilateral silicone implants are in the subpectoral position and appear stable in contour. Since the prior exam, there has been no significant change. The computer aided detection system was utilized. Assessment: BI-RADS Category 1: Negative. Recommendation: Routine mammographic follow-up in one year. Assessment BIRADS: 1-Negative Recommendation: Normal interval follow-up Dictated by: SOL MITCHELL Electronically signed by: SOL MITCHELL 03/09/2009 09:05 Transcribed: 03/08/2009 13:43 AMK Procedure Note Sol Mitchell - 03/09/[address] [address] Admit Date: 03/05/2009 SUKHI ANGELA Arriaga Sex: F Admit Prov: NUBIA GREEN Date: 1950 Primary Care Prov: BERTIN PLUMMER CMRN: [id number] Room: MARII N: [id number] IMAGING SERVICES Ordering Prov: NUBIA GREEN Interpretation BILATERAL SCREENING FULL FIELD DIGITAL MAMMOGRAM WITH CAD. 03/05/09 History: Bilateral breast augmentation. Routine screening Technique: Full and implant displaced mediolateral oblique andcraniocaudal views were obtained using full field digital mammography. Comparison: 11/2007, 08/2006, 03/2004 Breast Composition: Scattered fibroglandular densities. Findings: No new dominant masses, suspicious calcifications,parenchymal asymmetry or areas of architectural distortion are identified inthe visualized portion of either breast. Bilateral silicone implants arein the subpectoral position and appear stable in contour. Since the priorexam, there has been no significant change. The computer aided detectionsystem was utilized. Assessment: BI-RADS Category 1: Negative. Recommendation: Routine mammographic follow-up in one year. Assessment BIRADS: 1-Negative Recommendation: Normal interval follow-up Dictated by: SOL MITCHELL Electronically signed by: SOL MITCHELL 03/09/2009 09:05 Transcribed: 03/08/2009 13:43 AMK us Nubia Green MD MAMMO ORDERABLES Final Result documented in this encounter Visit Diagnoses Diagnosis Other screening mammogram documented in this encounter Care Teams Personnel Director Relationship Specialty Start Date End Date Karyna Benton DO [address] [place] [phone] PCP - General Family Practice 03/10/21 documented as of this encounter
--- OUTSIDE RECORDS SUMMARY | 2025-05-28 11:46 | XMS_ITS | Encounter Summary ---
Author Organization [facility] Address [address] [place] [address] Care Team Providers Care Executive Officer Special Warfare Team Name Role Phone Felix Fierro MD Primary Care Provider [phone] Encounter Details Date Type Department Care Team (Late st Contact Info) Description 08/14/2023 Lab Requisition [facility] - DermPath Lab [address] [facility] [place] [address] Janiya Spencer DO [address] [facility] [address] [place] [address] Social History Tobacco Use Types Packs/Day Years Used Date Smoking Tobacco: Never Smokeless Tobacco: Never Alcohol Use Standard Drinks/Week Comments Yes 0 (1 standard drink = 0.6 oz pur e alcohol) occ Comments Unknown Sex and Gender Information Value Date Recorded Sex Assigned at Not on file Legal Sex Female 5:17 PM MOTOR ROUTE CARRIER Gender Identity Not on file Sexual Orientation Not on file documented as of this encounter Plan of Treatment Not on file documented as of this encounter Procedures Procedure Name Priority Date/Time Associated Diagnosis Comments DERMATOPATHOLOGY Routine 08/14/2023 9:[address] MOTOR ROUTE CARRIER documented in this encounter Results * DERMATOPATHOLOGY (08/14/2023 9:16 AM MOTOR ROUTE CARRIER) Case Report Dermatopathology Report Case: [id number] Authorizing Provider: Janiya Spencer DO Collected: 08/14/2023 09:16 AM Ordering Location: [facility] Received: 08/15/2023 06:36 AM Pathologist: Jose Chacko MD Specimens: A) - Skin, left jawline B) - Skin, left ant LE C) - Skin, right ant LE 3 12:59 PM [facility] Final Diagnosis Specimen A. SKIN, left jawline: ACTINIC KERATOSIS (L57.0) (see microscopic description) Specimen B. 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 The specimen consists of two (2) pieces of a shave biopsy measuring 11x2x1 mm. Jar 0. Specimen B: Received is one formalin filled container labeled with the patient's name and designated left ant LE. The specimen consists of a shave biopsy measuring 5x4x1 mm. Jar 0. Specimen C: Received is one formalin filled container labeled with the patient's name and designated right ant LE. The specimen consists of a shave biopsy measuring 6x5x1 mm. Jar 0. 3 12:[address] [facility] [facility] [facility] DERMATOPATHOLOGY LABORATORY Microscopic Description Specimen A. SKIN, left jawline: There is focal parakeratosis. The lower half of the epidermis shows disorderly maturation of keratinocytes with nuclear pleomorphism. Additional deeper sections were obtained and reviewed. Specimen B. SKIN, left ant LE: Sections show papillomatosis and hypergranulosis with overlying focal parakeratosis. The base of the lesion is not visualized. Additional deeper sections were obtained and reviewed. Specimen C. SKIN, right ant LE: The epidermis shows parakeratosis, full thickness disorderly maturation of keratinocytes, mitoses at different levels, and dyskeratotic cells. 3 12:[address] [facility] DERMATOPATHOLOGY LABORATORY Disclaimer An external and internal positive and negative controls are appropriate for the histochemical, immunohistochemical and immunofluorescence stain(s) in this case (if any), except where stated explicitly. The performance characteristics of the stain(s) cited in this report were developed and its performance characteristic determined by the Dermatopathology Laboratory at [facility], directed by Dr. Isaac Chacko. These tests need not be, and therefore are not, approved by the [place] Food and Drug Administration. The tests are used for clinical purposes. Billing Codes Specimen Charges Stain Charges 90627 50116 [id number] 1 1 1 3 12:59 [address] [facility] [facility] [facility] DERMATOPATHOLOGY LABORATORY Embedded Images 3 12:59 PM [employer] [employer] DERMATOPATHOLOGY LABORATORY Pathology/Cytology TISSUE SPECIMEN FROM SKIN / Unknown 08/14/2023 9:16 AM MOTOR ROUTE CARRIER 08/15/2023 6:36 AM MOTOR ROUTE CARRIER Miscellaneous samples (specimen) TISSUE SPECIMEN FROM SKIN / Unknown 08/14/2023 9:16 AM MOTOR ROUTE CARRIER 08/15/2023 6:36 AM MOTOR ROUTE CARRIER Miscellaneous samples (specimen) TISSUE SPECIMEN FROM SKIN / Unknown 08/14/2023 9:16 AM MOTOR ROUTE CARRIER 08/15/2023 6:36 [address] MOTOR ROUTE CARRIER Janiya Spencer DO LAB - PATHOLOGY/CYTOLOGY ORDERABLES Final Result DERMATOPATHOLOGY LABORATORY [facility] - Department of Dermatology [facility] Medicine [address] [place] [address], [address] [phone] documented in this encounter Visit Diagnoses Not on filedocumented in this encounter Care Teams Executive Officer Special Warfare Team Relationship Specialty Start Date End Date Felix Fierro MD [address] [place] [phone] PCP - General 09/11/08 documented as of this encounter
--- OUTSIDE RECORDS SUMMARY | 2025-05-28 11:46 | XMS_ITS | Encounter Summary ---
Author Organization [facility] Address 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
--- OUTSIDE RECORDS SUMMARY | 2025-05-28 11:46 | XMS_ITS | Clinical Summary ---
Author Organization [facility] Address [address] [place] [address] Phone Care Team Providers Care Sheriff Deputy Name Role Phone BuckbeckieKaryna dc Primary Care Provider [phone]- [phone] Allergies No known active allergies Medications fluconazole (Diflucan) 200 mg tablet Take 1 tablet by mouth on days 1, 4, and 7. 3 Tablet 01/17/2022 1:30 PM CDT 2 Active gabapentin (NEURONTIN) 300 mg capsule Take 1 Capsule (300 mg) by mouth 2 times daily. 60 Capsule 2 08/11/2022 8:46 AM HEADLIGHT ADJUSTER 2 Active estradioL (ESTRACE) 0.01% (0.1 mg/g) vaginal cream Insert approximately 1/4 applicatorful vaginally; use with dilator 3-5x/week. 42.5 Gram 6 10/11/2022 2:42 PM HEADLIGHT ADJUSTER 3 Active scopolamine (TRANSDERM-SCO P) 1 mg/72 hr patch APPLY 1 PATCH TRANSDERMALLY BEHIND ONE EAR EVERY 72 HOURS DIRECTED NEEDED FOR MOTION SICKNESS. REMOVE OLD PATCH WHEN PLACING NEW ONE. 4 Patch 12/26/2022 2:19 PM CDT 3 Active LORazepam (ATIVAN) 0.5 mg tablet Take 1 Tablet (0.5 mg) by mouth 30 minutes prior to scan. 1 Tablet 03/19/2023 5:19 PM CDT 3 Active metroNIDAZOLE (METROGEL) 0.75 % (37.5mg/5 gram) vaginal gel Insert 1 applicatorful vaginally nightly for 5 day as needed. 70 Gram 3 04/10/2023 10:35 AM CDT 3 Active nystatin (NYSTOP) 100,000 unit/gram powder Apply to the groin area daily as needed. 60 Gram 06/11/2023 4:34 PM CDT 3 Active cyclobenzaprin e (FLEXERIL) 5 mg Tablet Take 1 Tablet (5 mg) by mouth every 8 hours as needed FOR MUSCLE SPASM 20 Tablet 10/18/2023 11:34 AM HEADLIGHT ADJUSTER 4 Active Encounters Date Type Department Care Team Description 05/19/2025 External Device Data [facility] ABSTRACTION Provider, Abstract 05/12/2025 External Device Data [facility] ABSTRACTION Provider, Abstract 03/27/2025 4:41 PM CDT - 03/27/2025 11:59 PM CDT Hospital Encounter [facility] [address] [place] [address] Karyna Benton DO Discharge Disposition: Home or Self Care 03/11/2025 External Device Data [facility] ABSTRACTION Provider, Abstract 03/10/2025 External Device Data [facility] ABSTRACTION Provider, Abstract from Last 3 Months Family History Medical History Relation Name Comments Cancer Other father kidney Breast Cancer Neg Hx Ovarian Cancer Neg Hx Relation Name Status Comments Other father Alive Social History Tobacco Use Types Packs/Day Years Used Date Smoking Tobacco: Never Assessed Comments Unknown Sex and Gender Information Value Date Recorded Sex Assigned at Not on file Legal Sex Female 4:20 AM HEADLIGHT ADJUSTER Gender Identity Not on file Sexual Orientation Not on file Occupation Industry Job Start Date Job End Date Not on file Not on file Not on file Not on file Plan of Treatment Health Maintenance Due Date Last Done Comments COLORECTAL SCREENING 1994 Colorectal Cancer Screening 1994 FIT-DNA Q 3 years 1994 FIT/FOBT Q 1 year 1994 Flex Sig/CT Colonography Q 5 years 1994 PNEUMOCOCCAL VACCINE 50+ YEA RS (1 of 1 - PCV) 11/09/1999 ZOSTER VACCINE (1 of 2) 11/09/1999 RSV VACCINE (60+ or ) (1 - 1-dose 75+ series) 2024 INFLUENZA VACCINE (#1) 2025 1, 06/03/2020, 06/21/2018 OSTEOPOROSIS SCREENING 02/08/2027 02/08/2022, 2021 DTAP/TDAP/TD VACCINES (2 - T d or Tdap) 06/16/2031 06/16/2021 Procedures Procedure Name Priority Date/Time Associated Diagnosis Comments MAMMO 3D KG SCREEN IMPL BILAT W OR WO CAD Routine 03/27/2025 4:58 PM CDT Visit for screening mammogram from Last 3 Months Results * MAMMO 3D KG SCREEN IMPL BILAT W OR WO CAD (03/27/2025 4:58 PM CDT) Anatomical Region Laterality Modality Breast Bilateral Mammography 03/27/2025 4:58 PM CDT Impressions 03/28/2025 12:04 PM CDT IMPRESSION: No mammographic evidence of malignancy in the bilateral breasts. Routine screening mammography is recommended in one year. OVERALL FINAL ASSESSMENT: BI-RADS CATEGORY 2: Benign findings. DICTATION LOCATION: [facility] 03/28/2025 12:04 PM CDT EXAMINATION: BILATERAL IMPLANT SCREENING FULL-FIELD DIGITAL MAMMOGRAM WITH CAD WITH 3D TOMOSYNTHESIS DATE: 03/27/2025 4:58 PM HISTORY: Routine screening mammography. COMPARISON: 06/29/2023 and 04/28/2022. . TECHNIQUE: Full and implant displaced mediolateral oblique and craniocaudal views were obtained using full field digital mammography. Low-dose full-field digital breast tomosynthesis examination was performed with 2D and 3D acquisitions. Examination is read in conjunction with computer aided detection. BREAST COMPOSITION: The breasts are almost entirely fatty. FINDINGS: There are bilateral subpectoralis silicone implants, unchanged in appearance. There are no suspicious masses, suspicious calcifications, or other suspicious findings in either breast. There has been no suspicious interval change. Computer aided detection was used in the interpretation of this examination. Karyna Benton DO MAMMO ORDERABLES Final Res ult from Last 3 Months Insurance [facility] BENEFIT PLANS RX [facility] [employer] (INTERNAL) [facility] Internal Plans Care Teams Sheriff Deputy Relationship Specialty Start Date End Date Karyna Benton DO [address] [place] [phone] PCP - General Family Practice 03/10/21
--- OUTSIDE RECORDS SUMMARY | 2025-05-28 11:46 | XMS_ITS | Encounter Summary ---
Author Organization [facility] Address [address] [place] [address] Care Team Providers Care Environmental Field Professional Name Role Phone Karyna Benton DO Primary Care Provider +1- [phone] Encounter Details Date Type Department Care Team (Late st Contact Info) Description 08/31/2006 Outpatient Historical HIS [facility] Felix Mata MD [address] [facility] [place] [address] Other Screening Mammogram (Primary Dx) Social History Tobacco Use Types Packs/Day Years Used Date Smoking Tobacco: Never Assessed Comments Unknown Sex and Gender Information Value Date Recorded Sex Assigned at Not on file Legal Sex Female 4:20 AM ACTUARIAL CLERK Gender Identity Not on file Sexual Orientation Not on file documented as of this encounter Plan of Treatment Not on file documented as of this encounter Visit Diagnoses Diagnosis Other screening mammogram- Primary documented in this encounter Care Teams Environmental Field Professional Relationship Specialty Start Date End Date Karyna Benton DO [address] [place] [address] PCP - General Family Practice 03/10/21 documented as of this encounter
--- OUTSIDE RECORDS SUMMARY | 2025-05-28 11:46 | XMS_ITS | Clinical Summary ---
Author Organization [facility] Address [address] [place] [address] Care Team Providers Care Computer Instructor Name Role Phone Non-Staff, Provider Primary Care Provider Bijan sandoval Social History Tobacco Use Types Packs/Day Years Used Date Smoking Tobacco: Never Assessed Comments Unknown Sex and Gender Information Value Date Recorded Sex Assigned at Not on file Legal Sex Female 3:28 PM CDT Gender Identity Not on file Sexual Orientation Not on file Plan of Treatment Health Maintenance Due Date Last Done Comments Colorectal Cancer Screening Colonoscopy (10 Years) 1950 Hepatitis C 11/09/1967 DTaP, Tdap and Td Vaccines ( 1 - Tdap) 1968 Pneumococcal Vaccine: 50+ Ye ars (1 of 1 - PCV) 11/09/1999 Zoster Vaccines (1 of 2) 11/09/1999 RSV Immunization or 60+ Years (1 - 1-dose 75+ series) 2024 COVID-19 Vaccine ( - 2023-2 5 season) 2025 Influenza Adult (#1) 2025 Dexa Scan (General) Completed 02/08/2022 Meningococcal B Vaccine Aged Out No l onger eligible based on patient's age to complete this topic Meningococcal Vaccine Aged Out No aiyana ramiro eligible based on patient's age to complete this topic RSV Immunizations Under 20 Months Aged Out No longer eligible based on patient's age to complete this topic Procedures Procedure Name Priority Date/Time Associated Diagnosis Comments BONE DENSITY/DEXA Routine 02/08/2022 10: 50 AM CDT Unspecified menopausal and perimenopausal disorder from Last 3 Months or Most Recently Relevant to Health Maintenance Results * BONE DENSITY/DEXA (02/08/2022 10:50 AM CDT) Anatomical Region Laterality Modality Bone Mammography 02/08/2022 11:1 5 AM CDT Impressions 02/08/2022 11:17 AM CDT Impression: BMD measured at AP lumbar spine, both total hips and both femoral necks at WHO category level of normal. Ordered By: MISHEL VELASQUEZ Interpreted By: Lj Patel MD, 02/08/2022 11:15 AM Narrative 02/08/2022 11:17 AM CDT Examination: DEXA Bone densitometry EXAM DATE: 02/08/2022 10:23 AM Clinical history: Postmenopausal. Calcium supplementation. Vitamin D use. Prior hysterectomy. Technique: DEXA bone minimal density evaluation was performed in the AP projection over the lumbar spine and over both hips in the AP projection utilizing standard imaging techniques. Assessment: The BMD measured at the AP spine L1-L4 is 1.2-3 g/cm? with a T-score of 1.6 and a Z-Score of 3.8. Bone density is up to 10% below young normal. This patient is considered normal according to the World Health Organization (WHO) criteria. Fracture risk is low. The BMD measured at the femur total left is 1.099 g/cm? with a T-score of 1.3 and a Z-Score of 2.9. Bone density is up to 10% below young normal. This patient is considered normal according to the World Health Organization (WHO) criteria. Fracture risk is low. The BMD measured at the left femoral neck is 0.854 g/sq cm resulting in a T score of 0.0 and a Z score of 2.0, values at the WHO category level of normal. The BMD measured at the femur total right is 1.116 g/cm? with a T-score of 1.4 and aZ-Score of 3.1. Bone density is up to 10% below young normal. This patient is considered normal according to the World Health Organization (WHO) criteria. Fracture risk is low. The BMD measured at the right femoral neck is 0.869 g/sq cm resulting in a T score of 0.2 and a Z score of 2.1, values at the WHO category level of normal. FRAX results: 10 year probability of major osteoporotic fracture 6.7% and of hip fracture 0.4%. Recommendations: All patients should ensure an adequate intake of dietary calcium and vitamin D. The NOF recommend adults under the age of 50 need 1000 mg of calcium and 400-800 IU of vitamin D daily. Effective therapy for the prevention and treatment of osteoporosis include biphosphonates. Follow-up: People with diagnosed cases of osteoporosis or at high risk for fracture should have regular bone mineral density test. For patients eligible for Medicare, routine testing is allowed once every 2 years. Testing frequency can be increased to one year for patients who have rapidly progressing disease, those who are receiving or discontinuing medical therapy to restore bone mass, or have additional risk factors. Based on these results, a followup exam is recommended in no earlier than 2 years. Procedure Note Lj Patel MD - 02/08/2022 Examination: DEXA Bone densitometry EXAM DATE: 02/08/2022 10:23 AM Clinical history: Postmenopausal. Calcium supplementation. Vitamin D use.Prior hysterectomy. Technique: DEXA bone minimal density evaluation was performed in the APprojection over the lumbar spine and over both hips in the AP projectionutilizing standard imaging techniques. Assessment: The BMD measured at the AP spine L1-L4 is 1.2-3 g/cm? with a T-score of1.6 and a Z-Score of 3.8. Bone density is up to 10% below young normal.This patient is considered normal according to the World HealthOrganization (WHO) criteria. Fracture risk is low. The BMD measured at the femur total left is 1.099 g/cm? with a T-score of1.3 and a Z-Score of 2.9. Bone density is up to 10% below young normal.This patient is considered normal according to the World HealthOrganization (WHO) criteria. Fracture risk is low. The BMD measured at the left femoral neck is 0.854 g/sq cm resulting in aT score of 0.0 and a Z score of 2.0, values at the WHO category level ofnormal. The BMD measured at the femur total right is 1.116 g/cm? with a T-score of1.4 and aZ-Score of 3.1. Bone density is up to 10% below young normal.This patient is considered normal according to the World HealthOrganization (WHO) criteria. Fracture risk is low. The BMD measured at the right femoral neck is 0.869 g/sq cm resulting in aT score of 0.2 and a Z score of 2.1, values at the WHO category level ofnormal. FRAX results: 10 year probability of major osteoporotic fracture 6.7% andof hip fracture 0.4%. Recommendations: All patients should ensure an adequate intake of dietary calcium andvitamin D. The NOF recommend adults under the age of 50 need 1000 mg ofcalcium and 400-800 IU of vitamin D daily. Effective therapy for theprevention and treatment of osteoporosis include biphosphonates. Follow-up: People with diagnosed cases of osteoporosis or at high risk for fractureshould have regular bone mineral density test. For patients eligible forMedicare, routine testing is allowed once every 2 years. Testing frequencycan be increased to one year for patients who have rapidly progressingdisease, those who are receiving or discontinuing medical therapy torestore bone mass, or have additional risk factors. Based on these results, a followup exam is recommended in no earlier than2 years. Impression: BMD measured at AP lumbar spine, both total hips and both femoral necks atWHO category level of normal. Ordered By: MISHEL VELASQUEZ Interpreted By: Lj Patel MD, 02/08/2022 11:15 AM Mishel Velasquez MD DEXA Final Result from Last 3 Months or Most Recently Relevant to [place] [address] [employer] Care Teams Computer Instructor Relationship Specialty Start Date End Date Non-Staff, Provider PCP - General 01/26/22
--- OUTSIDE RECORDS SUMMARY | 2025-05-28 11:47 | XMS_ITS | Clinical Summary ---
Author Organization [facility] Address [address] [place] [id number] Care Team Providers Care Heating And Ventilating Drafter Name Role Phone Erin Blanco MD Unavailable [phone] Karyna Benton DO Primary Care Provider + [phone] Erin Abrams OT Unavailable Unavailable Monae Hawley MD Unavailable [phone] Allergies No known active allergies Medications calcium citrate-vitamin D3 (CITRACAL+D) 315 mg-5 mcg (200 unit) per tabletIndicatio ns:Prevention of Vitamin D Deficiency Take 1 tablet by mouth every morning 7 Active propranoloL (INDERAL) 20 mg tabletIndicatio ns:anxiety Take 1 tablet (20 mg total) by mouth as needed 2 Active multivit,iron,m inerals/lutein (CENTRUM SILVER ULTRA WOMEN'S ORAL)Indication s:supplement Take 1 tablet by mouth every morning Active acidophilus-pec tin, citrus 100 million cell-10 mg capsuleIndicati ons:supplement Take 1 capsule by mouth every morning Active cholecalciferol (VITAMIN D-3) 1,000 unit capsuleIndicati ons:Vitamin D Deficiency Take 2 capsules (2,000 Units total) by mouth every morning 2 tablets Active zinc sulfate (ZINC-15 ORAL)Indication s:supplement Take 1 tablet by mouth every morning Active cycloSPORINE (RESTASIS) 0.05 % ophthalmic emulsionIndicat ions:dry eye Administer 1 drop into both eyes 2 (two) times a day Active ginkgo biloba 120 mg tabletIndicatio ns:memory supplement Take 1 tablet by mouth every morning Active docusate sodium (COLACE) 100 mg capsuleIndicati ons:constipatio n,Stool Softener Take 1 capsule (100 mg total) by mouth 2 (two) times a day 60 capsule 2 Active Additional Information Patient taking differently:100 mg oralEvery morning, Indications: constipation, Informant: Self, Reported on 03/07/2024 nystatin powder Apply to the groin area daily PRN 30 g 3 Active Additional Information Patient taking differently: topical As needed, Apply to the groin area, Indications: cutaneous candidiasis, Reported on 10/23/2024 atorvastatin (LIPITOR) 20 mg tabletIndicatio ns:hyperlipidem ia Take 1 tablet (20 mg total) by mouth every morning 4 Active naproxen (NAPROSYN) 500 mg tabletIndicatio ns:Pain Take 1 tablet (500 mg total) by mouth as needed for pain 4 Active Zepbound 2.5 mg/0.5 mL pen injectorIndicat ions:Weight Loss Management for Obese Patient (BMI >= 30) Inject 0.5 mL (2.5 mg total) under the skin once a week 4 Active MELATONIN ORALIndications :sleep Take 4 mg by mouth nightly Extended release Active KRILL OIL ORALIndications :supplement Take 1 tablet by mouth every morning Active aspirin 81 mg enteric coated tabletIndicatio ns:prevention of thrombosis Take 1 tablet (81 mg total) by mouth every morning Active HYDROcodone-katy taminophen (NORCO) 5-325 mg per tabletIndicatio ns:Pain Take 1 tablet by mouth every 6 (six) hours as needed for pain 20 tablet 4 Active Additional Information Patient not taking.Reported on 10/23/2024 LORazepam (ATIVAN) 0.5 mg tabletIndicatio ns:Cancer Chemotherapy-In duced Nausea and Vomiting Take 1 tablet (0.5 mg total) by mouth as needed for anxiety (PET scan) Take one tablet by mouth 30 minutes prior to scan 1 tablet 5 Active Active Problems Problem Noted Date Diagnosed Date Ganglion of left wrist 03/07/2024 Impaired fasting glucose 12/01/2022 Toxic multinodular goiter 12/01/2022 Postoperative visit 03/30/2022 History of vulvectomy 03/22/2022 Vulvar mass 02/26/2022 Vulvar cancer 02/26/2022 Cancer Staging:Pathologic:FIGO Stage IIIC(pN2c, cM0) - Signed by Rock Mondragon MD on 03/30/2022 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 Seborrheic keratoses 07/18/2016 Isabel angioma 07/18/2016 Melanocytic nevi of lower extremity or hip 07/18 Solar lentigo 07/18/2016 Nevus, non-neoplastic 07/18/2016 Radial styloid tenosynovitis 05/21/2015 Actinic keratosis 11/18/2013 Encounters Date Type Department Care Team Description 05/07/2025 Documentation [facility] Occupational Therapy [address] [place] [id number] Erin Abrams, OT from Last 3 Months Immunizations Immunization Administration Dates Next Due Influenza, Quadrivalent, Rec ombinant, Egg Free, Preservative Free, Intramuscular 06/20/2021,06/03/2020,06/05/2019,06/21 Influenza, Unspecified 06/28/2021,07/21/2020,05/2019 Tdap 06/16/2021 Surgical History Surgery Date Site/Laterality Comments HYSTERECTOMY 08/27/1988 - 08/26/1989 AUGMENTATION MAMMAPLASTY 08/27/1971 - 08/26/1972 Bilater al VULVECTOMY COMPLETE / RADICA L / PARTIAL 02/24/2022 - 03/26/2022 partial MELANOMA RESECTION 09/27/2018 - 10/24/2018 Left cheek Medical History Medical History Date Comments Hypercholesteremia Melanoma (HCC) PONV (postoperative nausea and vomiting) Family History Medical History Relation Name Comments Cancer Father Family history of malignant neoplasm - (Added by TW Conv) Heart disease Father Family history of cardiac disorder - (Added by TW Conv) COPD Mother Heart disease Mother Family history of cardiac disorder - (Added by TW Conv) Hypertension Mother Family history of hypertension - (Added by TW Conv) Stroke Mother Family history of cerebrovascular accident - (Added by TW Conv) Anesthesia problems Neg Hx Relation Name Status Comments Father Mother Social History Tobacco Use Types Packs/Day Years Used Date Smoking Tobacco: Never Passive Smoke Exposure: Current Smokeless Tobacco: Never Tobacco Cessation:Counseling Given: Not Answered AUDIT-C Answer Date Recorded Q1: How often do you have a drink containing alc ohol? Monthly or less 03/12/2024 Q2: How many drinks containi ng alcohol do you have on a typical day when you are drinking? 1 or 2 03/12/2024 Q3: How often do you have si x or more drinks on one occasion? Never 03/12/2024 Personal Safety Answer Date Recorded Have you ever been in or are you currently in a harmful physical or emotional relationship or is someone making you feel afraid or unsafe? Denies 03/12/2024 Comments No Sex and Gender Information Value Date Recorded Sex Assigned at Not on file Legal Sex Female 11:35 AM YARDAGE ESTIMATOR Gender Identity Not on file Sexual Orientation Not on file Obstetrics History Last Filed Vital Signs Vital Sign Reading Time Taken Comments Blood Pressure 138/81 10/23/2024 1:41 PM YARDAGE ESTIMATOR Pulse 119 10/23/2024 1:41 PM YARDAGE ESTIMATOR Temperature 36.7 C (98.1 F) 10/23/2024 1:41 PM YARDAGE ESTIMATOR Respiratory Rate 16 03/12/2024 1:40 PM CDT Oxygen Saturation 98% 10/23/2024 1:41 PM YARDAGE ESTIMATOR Inhaled Oxygen Concentration - - Weight 97.1 kg (214 lb) 10/23/2024 1:41 PM YARDAGE ESTIMATOR Height 162.6 cm (5' 4) 04/24/2024 1:42 PM CDT Body Mass Index 36.73 04/24/2024 1:42 PM CDT Plan of Treatment Health Maintenance Due Date Last Done Comments Colon Cancer Screening-Colonoscopy 1950 Depression Screening 1950 Hepatitis C Screening 1950 Hepatitis B Screening 11/09/1967 Pneumococcal vaccine 65+ (1 of 1 - PCV) 11/09/1999 Zoster Vaccine (1 of 2) 11/09/1999 Well Visit 65+ 2014 Osteoporosis Screening-Bone Density Scan 02/09/2024 02/08/2022 Fall Risk Assessment 03/12/2025 03/12/2024, 06/14/2022, 04/25/2022 Covid-19 Vaccine (4 - 2024-2 6 season) 2025 07/18/2021, 11/17/2020, 10/27/2020 Influenza Vaccine (#1) 2025 , 06/20/2021, 07/21/2020, Additional history exists DTaP/Tdap/Td Vaccine (2 - Td or Tdap) 06/16/2031 06/16/2021 Breast Cancer Screening-Mammogram Discontinued 06/29/2023, 06/29/2023, 04/28/2022, Additional history exists Medical Devices Implanted Type Area Crime Scene Analyst Device Identifier Shelf Expiration Date Model / Serial / Lot Breast Bilateral: [place] [address] [place] [id number] [place] [address] [facility] [id number] [place] [address] [facility] [id number] MEDICARE [facility] [id number] Advance Directives For more information, please contact: [phone] Documents on File Type Date Recorded Patient Slurry Blender Expl anation ADVANCE DIRECTIVE 03/15/2022 7:04 AM Power of Distribution Collection Operator-Financial/Medical ADVANCE DIRECTIVE 03/15/2022 7:03 AM Power of Distribution Collection Operator-Financial/Medical * Full Code (Latest Code Status on File) Date Activated Date Inactivated Comments 03/23/2022 2:21 AM 03/23/2022 3:15 PM * Full Code Date Activated Date Inactivated Comments 03/15/2022 5:15 PM 03/16/2022 8:30 PM Care Teams Heating And Ventilating Drafter Relationship Specialty Start Date End Date Karyna Benton DO PCP - General Family Medicine 03/05/22 Erin Blanco MD Referring Physician Obstetrics and Gynecology 03/05/22 Erin Abrams, OT Occupational Therapist Occupational Therapy 05/10/22 Monae Hawley MD [address] [place] [address] Radiation Oncologist Radiation Oncology 07/27/22
--- OUTSIDE RECORDS SUMMARY | 2025-05-28 11:47 | XMS_ITS | Encounter Summary ---
Author Organization [facility] Address [address] [place] [address] Care Team Providers Care Director Maternal Child Name Role Phone Felix Fierro MD Primary Care Provider [phone] Encounter Details Date Type Department Care Team (Late st Contact Info) Description 02/22/[address] [facility] - Derm[facility] Lab [address] [facility], [place] [address] Janiya Spencer DO [address] [facility] [address] [place] [address] Social History Tobacco Use Types Packs/Day Years Used Date Smoking Tobacco: Never Smokeless Tobacco: Never Alcohol Use Standard Drinks/Week Comments Yes 0 (1 standard drink = 0.6 oz pur e alcohol) occ Comments Unknown Sex and Gender Information Value Date Recorded Sex Assigned at Not on file Legal Sex Female 5:17 PM SALES REPRESENTATIVE [facility] [facility] Gender Identity Not on file Sexual Orientation Not on file documented as of this encounter Plan of Treatment Not on file documented as of this encounter Procedures Procedure Name Priority Date/Time Associated Diagnosis Comments DERMATOPATHOLOGY Routine 02/22/2023 3:24 PM CDT documented in this encounter Results * DERMATOPATHOLOGY (02/22/2023 3:24 PM CDT) Case Report Dermatopathology Report Case: [id number] Authorizing Provider: Janiya Spencer DO Collected: 02/22/2023 03:24 PM Ordering Location: [facility] Lab Received: 02/23/2023 01:29 PM Pathologist: Kiya Peña MD Specimen: Skin, mid chest 3 2:42 PM CDT DERMATOPATHOLOGY LABORATORY Final Diagnosis Specimen A. 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 The specimen consists of a non-oriented ellipse of skin measuring 90c91i3 mm. The epidermal surface is unremarkable. The margin is inked green. The 12 o'clock and 6 o'clock tips are submitted in cassette 1. The remainder of the ellipse is serially sectioned and submitted in cassette 2-3. Jar 0. 3 2:42 PM CDT DERMATOPATHOLOGY LABORATORY Microscopic Description Specimen A. SKIN, mid chest: The epidermis shows parakeratosis, full thickness disorderly maturation of keratinocytes, mitoses at different levels, and dyskeratotic cells. This lesion is not present at the margin of the specimen. There are fibroblasts and collagen bundles oriented parallel to the skin surface with elongated blood vessels, some of which are oriented perpendicular to the skin surface. 3 2:42 PM CDT DERMATOPATHOLOGY LABORATORY Disclaimer An external and internal positive and negative controls are appropriate for the histochemical, immunohistochemical and immunofluorescence stain(s) in this case (if any), except where stated explicitly. The performance characteristics of the stain(s) cited in this report were developed and its performance characteristic determined by the Dermatopathology Laboratory at [facility], directed by Dr. Isaac Chacko. These tests need not be, and therefore are not, approved by the [place] Food and Drug Administration. The tests are used for clinical purposes. Billing Codes Specimen Charges Stain Charges 85116 1 3 2:42 PM CDT DERMATOPATHOLOGY LABORATORY Embedded Images 3 2:42 PM CDT DERMATOPATHOLOGY LABORATORY Pathology/Cytolo gy TISSUE SPECIMEN FROM SKIN / Unknown 02/22/2023 3:24 PM CDT 02/23/2023 1:29 PM CDT us Janiya Spencer DO LAB - PATHOLOGY/CYTOLOGY ORDERABLES Final Result DERMATOPATHOLOGY LABORATORY [facility] - Department of Dermatology [facility] [address] [place] [address], [address] [phone] documented in this encounter Visit Diagnoses Not on filedocumented in this encounter Care Teams Director Maternal Child Relationship Specialty Start Date End Date Felix Fierro MD [address] [place] [address] PCP - General 09/11/08 documented as of this encounter
--- OUTSIDE RECORDS SUMMARY | 2025-05-28 11:47 | XMS_ITS ---
Author Organization [facility] Address [address] [place] [id number] Care Team Providers Care Printing Plate Setter Name Role Phone Erin Blanco MD Unavailable [phone] Karyna Benton DO Primary Care Provider [phone] Erin Abrams OT Unavailable Unavailable Monae Hawley MD Unavailable [phone] Active Problems Problem Noted Date Diagnosed Date [...] Radial styloid tenosynovitis 05/21/2015 Actinic keratosis 11/18/2013 Current Treatment and Therapy Plans No current plan information found. Past Treatment and Therapy Plans Oncology Chemotherapy Treatment Plan Name Start Date Discontinue Date Treatment Medications Discontinue Reason Plan Provider Cycles CISplatin Weekly with Radiation - [facility]ER AND LACER 2 05/04/2022 CISplatin (PLATINOL) Patient Preference Rock Mondragon MD Treatment not started Radiation Treatments * Course [id number]/25/2022 - 07/05/2022 Treatment Period Energy Fraction Dose Fractions Total Dose Plans Planned VUVLA_PELV # 05/25/2022 - 07/05/2022 200 30 / 6,000 Reference Points Delivered DPV_VULVA 05/25/2022 - 07/05/2022 6,000
--- OUTSIDE RECORDS SUMMARY | 2025-05-28 11:47 | XMS_ITS | Clinical Summary ---
Author Organization [facility] [employer] Address [address] [place] [address] Care Team Providers Care [employer] Specialist Name Role Phone Felix Fierro MD Primary Care Provider [phone] Source Comments [facility] [employer],non-owned Affiliates and Associated Physician Practices is amultiple site organization consisting of ambulatory clinics and hospital sitesin [place], [place], [place] and [place]. This disclosure is being madepursuant to the Care Everywhere program and may not contain all information available regarding this patient. Last updated 18.[facility] [employer] Allergies No known active allergies Medications * Be aware that medications may not be up to date on this document. Alwaysverify current medications with the patient. calcium citrate-vitamin D (CITRACAL PLUS D) 315-200 MG-UNIT tablet Take by mouth. 07/13/2017 Active [place]-3 Fatty Acids (FISH OIL) 1000 MG capsule Take by mouth. 07/13/2017 Active Probiotic Product (ACIDOPHILUS/GO AT MILK) CAPS Take by mouth. 07/13/2017 Active atorvastatin (LIPITOR) 10 MG tablet Take 10 mg by mouth once daily 08/24/2018 Active propranolol (INDERAL) 20 MG tablet Take 20 mg by mouth as needed 08/13/2018 Active cycloSPORINE (RESTASIS) 0.05 % ophthalmic suspension Instill 1 drop into both eyes 2 times daily Active Multiple Vitamins-Minera ls (CENTRUM SILVER PO) Take 1 tablet by mouth once daily Active Multiple Vitamins-Minera ls (ZINC PO) Take 1 tablet by mouth once daily Active Ginkgo Biloba (GINKOBA PO) Take 1 tablet by mouth once daily Active Cholecalciferol (D3 PO) Take 2 capsules by mouth once daily Active Active Problems Problem Noted Date Diagnosed Date 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 Xerosis cutis 07/18/2016 Other melanin hyperpigmentation 07/18/2016 Melanocytic nevi of lower extremity or hip 07/18 Melanocytic nevi of trunk 07/18/2016 Melanocytic nevi of unspecif ied upper limb, including shoulder 07/18/2016 Nevus, non-neoplastic 07/18/2016 Seborrheic keratoses 07/18/2016 Solar lentigo 07/18/2016 Isabel angioma 07/18/2016 Actinic keratosis 11/18/2013 Immunizations Immunization Administration Dates Next Due INFLUENZA VACCINE 06/28/2021,07/21/2020,06/05/20 19 Family History Medical History Relation Name Comments Hypertension Brother CAD (Coronary Artery Disease) Father Cancer Father Brain; Status: CAD (Coronary Artery Disease) Maternal Grandfather Other Mother COPD; Status: D eceased Cancer - Skin, Melanoma Neg Hx Cancer - Skin, Non Melanoma Neg Hx Relation Name Status Comments Brother Father Maternal Grandfather Mother Social History Tobacco Use Types Packs/Day Years Used Date Smoking Tobacco: Never Smokeless Tobacco: Never Alcohol Use Standard Drinks/Week Comments Yes 0 (1 standard drink = 0.6 oz pur e alcohol) occ Comments Unknown Sex and Gender Information Value Date Recorded Sex Assigned at Not on file Legal Sex Female 5:17 PM PERSONNEL RECORDS CLERK Gender Identity Not on file Sexual Orientation Not on file Last Filed Vital Signs Vital Sign Reading Time Taken Comments Blood Pressure 139/79 04/07/2019 10:14 AM CDT Pulse 69 04/07/2019 10:14 AM CDT Temperature 37 C (98.6 F) 04/07/2019 10:14 AM CDT Respiratory Rate 22 11/04/2018 9:47 AM CDT Oxygen Saturation 98% 04/07/2019 10:14 AM CDT Inhaled Oxygen Concentration - - Weight 103 kg (227 lb) 04/07/2019 10:14 AM CDT Height 165.1 cm (5' 5) 04/07/2019 10:14 AM CDT Body Mass Index 37.77 04/07/2019 10:14 AM CDT Plan of Treatment Health Maintenance Due Date Last Done Comments BONE DENSITY TESTING 1950 COLOGUARD (AGES 45-75) - COL ON CA SCREENING 1949 COLON MONITORING 1949 COLONOSCOPY - COLON CA SCREENING 1949 CT COLONOGRAPHY - COLON CA SCREENING 1950 Colorectal Cancer Screening 1950 FIT - COLON CA SCREENING 1949 FLEX SIG - COLON CA SCREENING 1950 MAMMOGRAM 1950 HEPATITIS C SCREENING 11/04/1967 DTAP/TDAP/TD VACCINES (1 - Tdap) 1968 PNEUMOCOCCAL VACCINE 50+ (1 of 1 - PCV) 11/09/1999 ZOSTER VACCINE (1 of 2) 11/09/1999 DEPRESSION SCREENING 08/27/2024 Respiratory Syncytial Virus (RSV) Vaccine Pt: or over 60 yrs (1 - 1-dose 75+ series) 2024 COVID-19 VACCINE (1 - 2023-2 5 season) 2025 INFLUENZA VACCINE (#1) 2025 , 07/21/2020, 06/05/2019 HEPATITIS B VACCINE Aged Out No longe r eligible based on patient's age to complete this topic HIB VACCINE Aged Out No longer eligi ble based on patient's age to complete this topic HPV VACCINE Aged Out No longer eligi ble based on patient's age to complete this topic MENINGOCOCCAL (Group B) VACCINE SHARED DECISION-MAKING Aged Out No longer eligible based on patient's age to complete this topic MENINGOCOCCAL GROUPS A/C/Y/W VACCINE Aged Out No longer eligible b ased on patient's age to complete this topic Insurance [employer] MEDICARE [employer] & other things you bakeLINK Care Teams [employer] Specialist Relationship Specialty Start Date End Date Felix Fierro MD [address] [place] [id number] PCP - General 09/11/08
[2025-05-28] MEDS: ACETAMINOPHEN 500 MG TABLET 1000 MG PO (12:41)
[2025-05-28] MEDS: KETOROLAC 30 MG/ML VIAL (*BKC) IM (12:42)
--- NOTE | 2025-05-28 13:23 | ED.GENADULT ---
HPI - General Adult General Chief complaint: Extremity Injury, Lower Stated complaint: left knee pain Time Seen by Provider: 05/28/25 11:37 History of Present Illness HPI narrative: This is a 74-year-old obese female presenting with left knee pain. Patient's knee has been hurting for approximately 5 days. She has been treating with intermittent Motrin with mild relief. The pain is worse with walking or going up stairs. She has not noticed any significant swelling but does have chronic lymphedema of her leg. She is concerned that she may have a blood clot. She does not have any fevers or cellulitic changes. No history of gout. No history of arthritis. Related Data Home Medications ?Medication ?Instructions ?Recorded ?Confirmed ?Last Taken ?Type omega-3 fatty acids 1,000 mg 1,000 mg PO DAILY 08/21/19 12/16/24 05/31/24 History capsule (Fish Oil Concentrate) zinc 15 mg tablet 15 mg PO DAILY 12/21/22 12/16/24 05/31/24 History melatonin 3 mg tablet 4 mg PO QHS PRN Insomnia 06/29/23 12/16/24 05/31/24 History aspirin 81 mg capsule 81 mg PO DAILY 12/28/23 12/16/24 05/31/24 History ginkgo biloba 40 mg tablet 40 mg PO DAILY 12/28/23 12/16/24 05/31/24 History calcium acetate 667 mg tablet 667 mg PO ONCE 05/30/24 12/16/24 05/31/24 History cholecalciferol (vitamin D3) 25 50 mcg PO DAILY 12/16/24 12/16/24 Unknown History mcg (1,000 unit) capsule Allergies Allergy/AdvReac Type Severity Reaction Status Date / Time No Known Allergies Allergy Mild Verified 05/27/25 16:23 [facility] Past Medical History Medical History Ganglion cyst UTI (urinary tract infection) Hyperlipidemia Surgical History Surgical History History of vulvectomy 03/15/22 History of Mohs surgery for squamous cell carcinoma in situ of skin H/O cataract extraction H/O: hysterectomy H/O detached retina repair Family History Family History Father Family history of cardiovascular disease Hypertension Family history of elevated blood lipids Acute myocardial infarction Social History Social History Smoking status: Never smoker Alcohol intake: current Alcohol use details: 2 drinks per month Lack of Transportation: No Lack of Food: Never True Current Housing: I Have Housing Concerned About Future Housing: No Difficulty Paying Gas/Electric Bills: No Difficulty Paying for Meds: No Currently Unemployed: No Education: Master's Degree or Higher Difficulty w/ Childcare or Family Care: No Living arrangements: with family Gender identity (if verbalized by the patient): Female Spiritual care concerns: No Exam Narrative: APPEARANCE: No apparent distress. Head: atraumatic. EYES: EOMI, NOSE: Atraumatic NECK: Trachea midline RESPIRATORY: No increased rate of breathing CARDIOVASCULAR: RRR, ABDOMINAL: Non-distended MUSCULOSKELETAl: Focal exam of the left knee revealed no significant effusion. No swelling. No warmth or overlying cellulitis. The foot is neurovascularly intact. NEURO: Alert. Moving 4/4 extremities SKIN:: Warm, dry. Normal color PSYCHIATRIC: Normal affect Course Vital Signs Vital signs: Vital Signs Temperature 98.1 F 05/28/25 11:30 Pulse Rate 80 05/28/25 11:30 Respiratory Rate 20 05/28/25 11:30 Blood Pressure 180/69 H 05/28/25 11:30 Pulse Oximetry 99 05/28/25 11:30 Oxygen Delivery Room Air 05/28/25 11:30 Temperature 98.1 F 05/28/25 11:30 Pulse Rate 80 05/28/25 11:30 Respiratory Rate 20 05/28/25 11:30 Blood Pressure 180/69 H 05/28/25 11:30 Pulse Oximetry 99 05/28/25 11:30 Oxygen Delivery Room Air 05/28/25 11:30 Medical Decision Making [facility] Narrative Medical decision making narrative: -Course: 74-year-old female presenting with atraumatic left knee pain. Physical exam is unremarkable no evidence of trauma, effusions warmth or infectious changes. X-rays were negative for acute traumatic injury or significant degenerative changes. DVT scan was negative. Patient was treated with Toradol Tylenol. She will be discharged follow-up with orthopedics for further management of her knee pain. -DDX includes but is not limited to: Osteo Arthritis, DVT, gout, septic arthritis -Co-morbidities complicating care: Obesity, hyperlipidemia Vital Signs Vital Signs: Vital Signs Temperature 98.1 F 05/28/25 11:30 Pulse Rate 80 05/28/25 11:30 Respiratory Rate 20 05/28/25 11:30 Blood Pressure 180/69 H 05/28/25 11:30 Pulse Oximetry 99 05/28/25 11:30 Oxygen Delivery Room Air 05/28/25 11:30 Temperature 98.1 F 05/28/25 11:30 Pulse Rate 80 05/28/25 11:30 Respiratory Rate 20 05/28/25 11:30 Blood Pressure 180/69 H 05/28/25 11:30 Pulse Oximetry 99 05/28/25 11:30 Oxygen Delivery Room Air 05/28/25 11:30 Discharge Plan Discharge Clinical Impression: Acute knee pain Patient Disposition: Home Condition: Stable Instructions: Antibiotic Form, Knee Pain (ED) Additional Instructions: You were seen in the emergency department for left knee pain. Your x-rays did not show any fracture. Your DVT scan did not show a blood clot in her legs. It is unclear what is causing your pain at this time. Please take Motrin and Tylenol as needed for pain. Please call the orthopedic surgeon's clinic today or tomorrow to arrange follow up. Return if you develop severe pain, inability to ambulate, fevers or any new or worsening symptoms. Patient Language: Tajik Prescriptions: No Action omega-3 fatty acids [Fish Oil Concentrate] 1,000 mg capsule 1,000 mg PO DAILY melatonin 3 mg tablet 4 mg PO QHS PRN (Reason: Insomnia) Probiotic Digestive Care 20 billion cell capsule See Rx Instructions PO .COMPLEX Qty: 30 11RF Rx Instructions: 1 capsule QD PO; Centrum Silver 0.4-300-250 mg-mcg-mcg tablet 1 tablet PO DAILY Qty: 90 3RF zinc 15 mg tablet 15 mg PO DAILY ginkgo biloba 40 mg tablet 40 mg PO DAILY Rx Instructions: give with meal/snack aspirin 81 mg capsule 81 mg PO DAILY naproxen 500 mg tablet 500 mg PO BID PRN (Reason: pain) Qty: 180 0RF cholecalciferol (vitamin D3) 25 mcg (1,000 unit) capsule 50 mcg PO DAILY calcium acetate 667 mg tablet 667 mg PO ONCE propranolol 20 mg tablet 20 mg PO Q12H PRN (Reason: Anxiety) Qty: 180 1RF atorvastatin 20 mg tablet See Rx Instructions .ROUTE .COMPLEX Qty: 90 1RF Dose Instruction: TAKE 1 TABLET AT BEDTIME Rx Instructions: TAKE 1 TABLET AT BEDTIME Follow-up/Referrals: Sid Pope MD [Physician, Orthopedics] - 1 Day Referral Note: Knee pain Karyna Benton DO [Primary Care Provider, Family Practice]
== END 2025-05-28 14:10 | disposition home or self-care (01) ==
PROVIDERS: Emergency Provider Emergency Medicine; PCP Family Medicine
DX: M25.562 Pain in left knee (principal); I89.0 Lymphedema, not elsewhere classified; E78.5 Hyperlipidemia, unspecified; E66.9 Obesity, unspecified; Z68.37 Body mass index [BMI] 37.0-37.9, adult; Z87.440 Personal history of urinary (tract) infections; Z85.828 Personal history of other malignant neoplasm of skin; Z90.710 Acquired absence of both cervix and uterus; Z98.49 Cataract extraction status, unspecified eye; Z79.82 Long term (current) use of aspirin; Z79.899 Other long term (current) drug therapy; M79.605 Pain in left leg
CPT/HCPCS: 73562; 93971; 96372; 99284; A9270; J1885